=== PATIENT | female | born 1995 | race American Indian/Alaskan Native ===

== ENCOUNTER 2017-03-04 21:34 | Emergency (ER) | payer OTHER ==
--- NOTE | 2017-03-05 01:22 | Emergency Department Report ---
HPI - General Chief Complaint: Back Pain/Injury Time Seen by Provider: 03/05/17 00:21 - HPI HPI: 21-year-old female presents to ED complaining of right sided flank to the lower pelvic pain that started today. Patient states she is experiencing throbbing in nature, intermittent to constant pain level right flank area and sometimes feels her lower pelvic region. She states normal menstrual period with no irregular or abnormal bleeding or spotting. She denies dysuria, frequency or urgency she denies vaginal discharge she denies fevers/chills or any other problems. ED Past Medical Hx - Medications Home Medications: Home Medications Medication Instructions Recorded Confirmed Last Taken Type Ibuprofen [Motrin] 800 mg PO Q8HR PRN #20 tablet 03/05/17 Unknown Rx Sulfamethoxazole/Trimethoprim 1 each PO BID #14 tablet 03/05/17 Unknown Rx [Bactrim DS TAB] ED Review of Systems ROS: Stated complaint: BACK PAIN Other details as noted in HPI Constitutional: denies: chills, fever Eyes: denies: eye pain, eye discharge, vision change ENT: denies: ear pain, throat pain Respiratory: denies: cough, shortness of breath, wheezing Cardiovascular: denies: chest pain, palpitations Endocrine: no symptoms reported Gastrointestinal: denies: abdominal pain, nausea, vomiting, diarrhea, constipation Genitourinary: denies: urgency, dysuria, frequency, hematuria, discharge Musculoskeletal: denies: back pain, joint swelling, arthralgia Skin: denies: rash, lesions Neurological: denies: headache, weakness, paresthesias Psychiatric: denies: anxiety, depression Hematological/Lymphatic: denies: easy bleeding, easy bruising Physical Exam - Physical Exam Vital Signs: Vital Signs 03/04/17 21:38 Temperature 98.7 F Pulse Rate 76 Blood Pressure 119/72 O2 Sat by Pulse 100 Oximetry Physical Exam: GENERAL: Alert and oriented x3, no apparent distress, Normal Gait, atraumatic. HEAD: Head is normocephalic and a-traumatic. EYES: Extra ocular muscles are intact. Pupils are equal, round, and reactive to light and accommodation. LUNGS: Symetrical with respiration, No wheezing, no rales or crackles, CTAB. HEART: S1, S2 present, regular rate and rhythm without murmur, no rubs, no gallops. ABDOMEN: No organomegaly was noted,Positive bowel sounds, soft, and non- distended. . Nontender to palpation on all Quadrants, NO CVA tenderness. Tenderness to palpation of the lower right flank region. SKIN: Warm and dry, No lesions, No ulceration or induration present. ED Course Vital Signs 03/04/17 21:38 Temperature 98.7 F Pulse Rate 76 Blood Pressure 119/72 O2 Sat by Pulse 100 Oximetry ED Medical Decision Making - Medical Decision Making 21-year-old female presents with urinary tract infection ED course: A urinalysis and urine test ordered. Urinalysis shows; positive leukoesterase, epithelial cells urine test negative Discussed findings with patient. Vital signs are normal patient is in no acute or respiratory distress. Discussed the patient to follow up with primary care physician or [facility] Discussed the patient take antibiotics as prescribed. Discussed Motrin as needed for pain. Critical care attestation.: If time is entered above; I have spent that time in minutes in the direct care of this critically ill patient, excluding procedure time. ED Disposition Clinical Impression: UTI (urinary tract infection) Qualifiers: Urinary tract infection type: acute cystitis Hematuria presence: without hematuria Qualified Code(s): N30.00 - Acute cystitis without hematuria Disposition: - TO HOME OR SELFCARE Is pt being admited?: No Does the pt Need Aspirin: No Condition: Stable Instructions: Urinary Tract Infection in Women (ED) Additional Instructions: Taken medication as prescribed. Follow-up with the primary care doctor. Prescriptions: Ibuprofen [Motrin] 800 mg PO Q8HR PRN #20 tablet PRN Reason: Pain Sulfamethoxazole/Trimethoprim [Bactrim DS TAB] 1 each PO BID #14 tablet Referrals: PRIMARY CARE [Primary Care Provider] - 3-5 Days [facility] [Outside] - 3-5 Days [facility] [Outside] - 3-5 Days [facility] [Outside] - 3-5 Days Forms: Work/School Release Form Time of Disposition: :
[2017-03-05 01:52] LABS: Bilirubin,Urine NEG (Negative); Blood,Urine NEG (Negative); Ketones,Urine NEG (Negative); Leukocyte Esterase,Urine MOD (Negative); Mucus,Urine 3+ /HPF; Nitrite,Urine NEG (Negative); Protein,Urine <15 mg/dL mg/dL (Negative); Urobilinogen,Urine < 2.0 mg/dL (<2.0)
[2017-03-05 02:52] VITALS: BP 116/57
== END 2017-03-05 02:52 | disposition home or self-care (01) ==
LOC: ED 21:34
DX: N39.0 Urinary tract infection, site not specified (principal)
CPT/HCPCS: 81001; 81025; 99283

== ENCOUNTER 2017-04-08 15:05 | Outpatient (CLI) | payer OTHER ==
--- NOTE | 2017-04-09 07:47 | Ultrasound Report ---
ULTRASOUND PELVIC COMPLETE ULTRASOUND TRANSVAGINAL HISTORY: Abdominal pain, pelvic pain, cramping. TECHNIQUE: Transabdominal and transvaginal ultrasound with color doppler interrogation. The uterus is retroflexed and measures 7.6 x 3.5 x 4.8 cm. No uterine mass is detected. The endometrial stripe measures 8 mm. Normal cervix. The ovaries are normal size, contour and echotexture. Normal follicles are identified bilaterally. No adnexal cyst or mass. No pelvic fluid collection. IMPRESSION: Unremarkable transabdominal and transvaginal pelvic ultrasounds.
== END 2017-04-08 15:06 | disposition home or self-care (01) ==
LOC: US 15:05
PROVIDERS: ATTEND Family Medicine
DX: N85.4 Malposition of uterus (principal); R10.9 Unspecified abdominal pain; R10.2 Pelvic and perineal pain; R25.2 Cramp and spasm
CPT/HCPCS: 76830; 76856

== ENCOUNTER 2020-08-10 14:43 | Emergency (ER) | payer OTHER ==
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
[2020-08-10 17:16] VITALS: BP 110/82
== END 2020-08-10 16:45 | disposition home or self-care (01) ==
LOC: ED 14:43
DX: S16.1XXA Strain of muscle, fascia and tendon at neck level, initial encounter (principal); R51.9 Headache, unspecified; Z79.899 Other long term (current) drug therapy; V49.59XA Passenger injured in collision with other motor vehicles in traffic accident, initial encounter; Y93.89 Activity, other specified; Y92.488 Other paved roadways as the place of occurrence of the external cause; Y99.8 Other external cause status
CPT/HCPCS: 72040; 99283